=== PATIENT | female | born 1940 | race Caucasian/White ===

== ENCOUNTER → 2016-05-22 | Outpatient (CLI) | payer MEDICARE, BC, OTHER ==
[~2016-05-22] MED LIST: CALTRATE 600 +1 TAB PO; COLACE 100100 MG/CAP PO; ENABLEX PO; GENTEAL 10 ML10 M1 OP; GLUCOSAMINE/CHONDROI PO; MIRAPEX 1MG PO; MULTI VITAMINS1 TAB PO; MVI PO; NORFLEX 10100 MG/TAB PO; PERCOCET 325 MG1 TA2 PO; PRILOSEC10 MG PO; TYLENOL 500MG500 MG PO; VICODIN 5/5001 UDTAB PO; ZITHROMAX 250M250 MG PO
== END ==
LOC: MC.RAD 15:53
DX: Z12.31 Encounter for screening mammogram for malignant neoplasm of breast (principal); R92.8 Other abnormal and inconclusive findings on diagnostic imaging of breast

== ENCOUNTER → 2016-05-28 | Outpatient (CLI) | payer MEDICARE, BC, OTHER | LOC: MC.RAD 09:00 | DX: N64.89 Other specified disorders of breast (principal) ==

== ENCOUNTER → 2016-09-16 | Outpatient (CLI) | payer MEDICARE, BC | LOC: MHCPAIN 09:00 | DX: G89.29 Other chronic pain (principal); M47.817 Spondylosis without myelopathy or radiculopathy, lumbosacral region; M54.16 Radiculopathy, lumbar region; M53.3 Sacrococcygeal disorders, not elsewhere classified; M48.06 Spinal stenosis, lumbar region; M41.9 Scoliosis, unspecified | CPT/HCPCS: G0463 ==

== ENCOUNTER → 2016-10-20 | Outpatient (CLI) | payer MEDICARE, BC | LOC: MHCPAIN 12:48 | DX: G89.29 Other chronic pain (principal); M47.817 Spondylosis without myelopathy or radiculopathy, lumbosacral region; M54.16 Radiculopathy, lumbar region; M41.06 Infantile idiopathic scoliosis, lumbar region | CPT/HCPCS: G0463 ==

== ENCOUNTER → 2017-04-20 | Outpatient (CLI) | payer MEDICARE, BC | LOC: MHCPAIN 09:57 | DX: G89.29 Other chronic pain (principal); M47.817 Spondylosis without myelopathy or radiculopathy, lumbosacral region; M41.9 Scoliosis, unspecified | CPT/HCPCS: G0463 ==

== ENCOUNTER → 2017-07-20 | Outpatient (CLI) | payer MEDICARE, BC | LOC: MHCPAIN 13:11 | DX: G89.29 Other chronic pain (principal); M47.817 Spondylosis without myelopathy or radiculopathy, lumbosacral region; M41.9 Scoliosis, unspecified | CPT/HCPCS: G0463 ==

== ENCOUNTER 2017-08-07 14:00 | Outpatient (RCR) | payer MEDICARE, BC | END 2017-08-12 | LOC: WSPT | DX: M41.86 Other forms of scoliosis, lumbar region (principal); M47.817 Spondylosis without myelopathy or radiculopathy, lumbosacral region | CPT/HCPCS: G8978-GP; G8979-GP; G8980-GP ==

== ENCOUNTER → 2017-12-31 | Outpatient (CLI) | payer MEDICARE, BC | LOC: MC.RAD 14:00 | DX: Z12.31 Encounter for screening mammogram for malignant neoplasm of breast (principal) ==

== ENCOUNTER → 2020-03-06 | Outpatient (CLI) | payer MEDICARE, BC ==
[2006-01-29 13:37] VITALS: BP 141/80
[2020-03-06] VITALS (18 sets, daily range): BP systolic 130–163; BP diastolic 72–88; PULSE 64–99
[~2020-03-06] VITALS: Ht 157.5 cm; Wt 78.3 kg
[~2020-03-06] MED LIST changes: +ASPIRIN E.C. 8181 MG PO; +COZAAR 25MG25 MG/TAB PO; +LIORESAL 1010 MG/TAB PO; +LUTEIN20 M1 PO; +MASON NATURAL S1 CAP PO; +MIRALAX PA17 GM/Dose PO; +MIRAPEX0.75 MG PO; -MULTI VITAMINS1 TAB PO; +OSCAL 500 TAB500 MG PO; +ZYRTEC 10MG10 MG PO
== END ==
LOC: COL.RAD 13:00
DX: C66.9 Malignant neoplasm of unspecified ureter (principal); N28.89 Other specified disorders of kidney and ureter; Z90.5 Acquired absence of kidney
CPT/HCPCS: J2250; J3010

== ENCOUNTER → 2020-05-07 | Outpatient (RCR) | payer MEDICARE, BC ==
[~2020-05-07] MED LIST changes: +ACULAR LS 5 ML5 ML OU; +AMOXICILLIN 8751 TAB PO; +BACTRIM DS 8001 TAB PO; +COMBIRESP IH; +DOXYCYCLINE 10100 MG PO; +ELIQUIS 5MG PO; +MURO 128 5% OPH15 ML OP; +MURO-128 30 ML30 ML OP; +NORCO 325 MG-51 TAB PO; +TOBRADEX EYE DRO5 ML OP; +ULTRAM 50MG TAB50 MG PO
== END | disposition home or self-care (01) ==
LOC: WSPT
DX: I89.0 Lymphedema, not elsewhere classified (principal); Z92.3 Personal history of irradiation

== ENCOUNTER → 2020-07-30 | Outpatient (CLI) | payer MEDICARE, BC | LOC: COL.RAD 14:55 | DX: M17.12 Unilateral primary osteoarthritis, left knee (principal); C54.1 Malignant neoplasm of endometrium; G62.89 Other specified polyneuropathies; M48.061 Spinal stenosis, lumbar region without neurogenic claudication ==

== ENCOUNTER 2020-08-03 11:00 | Outpatient (RCR) | payer MEDICARE, BC | END 2020-08-06 | disposition home or self-care (01) | LOC: WSPT | DX: I89.0 Lymphedema, not elsewhere classified (principal) ==

== ENCOUNTER 2020-09-12 14:00 | Outpatient (RCR) | payer MEDICARE, BC | END 2020-11-06 | disposition home or self-care (01) | LOC: WSPT | DX: I89.0 Lymphedema, not elsewhere classified (principal) ==

== ENCOUNTER 2021-06-18 18:55 | Observation (INO) | payer MEDICARE, BC ==
[~2021-06-18] VITALS: Ht 152.4 cm; Wt 95.7 kg
[2021-06-18 19:53] LABS: BASO % 0.1 % (0.0-2.0); GRAN # 12.6 K/mm3 (1.4-6.5); LYMPH # 0.5 K/mm3 (1.2-3.4); LYMPH % 3.4 % (20.0-51.0); MEAN CELL VOLUME 86 fl (80.0-100.0); MEAN CORPUSCULAR HGB CONC 31 g/dl (33.0-37.0); MEAN PLATELET VOLUME 9.5 fl (7.4-10.4); MONO # 1.5 K/mm3 (0.1-0.6); MONO % 10.1 % (1.7-9.3); PLATELET COUNT 464 K/mm3 (130-400); RED BLOOD COUNT 3.05 M/mm3 (4.10-5.30); REDCELL DISTRIBUTION WIDTH-CV 15.7 % (11.5-14.5)
[2021-06-18 19:57] LABS: HEMATOCRIT 26.1 % (37.0-47.0); HEMOGLOBIN 8.2 g/dl (12.5-16.0); MEAN CORPUSCULAR HEMOGLOBIN 27 pg (27-31)
[2021-06-18 20:11] LABS: ALBUMIN 2.3 gm/dL (3.4-4.8); BILIRUBIN,TOTAL 0.3 mg/dL (0.2-1.2); C-REACTIVE PROTEIN 12.6 mg/dL (0.00-0.50); CALCIUM 8.3 mg/dL (8.4-10.2); CREATININE, serum 0.81 mg/dL (0.57-1.11); POTASSIUM 4.4 mmol/L (3.5-4.5); TOTAL PROTEIN 5.4 gm/dL (6.2-8.1)
[2021-06-18 23:09] VITALS: BP 117/49; PULSE 85; TEMP 98.5
--- NOTE | 2021-06-18 23:36 | NUR ---
Patient arrived to the unit by bed, alert and oriented x 4, reports pain in her genitalia. She took drea pain medication in the ER. Assessment completed, medications provided.
[2021-06-18] MEDS ORDERED: XARELTO20 MG PO (23:44)
[2021-06-18] MEDS ORDERED: B-121000 MCG PO (23:48)
[2021-06-18] MEDS ORDERED: ROXANOL 20MG20 MG/ML PO (23:52)
[2021-06-19 04:49] VITALS: BP 129/56; PULSE 91; TEMP 98.6
--- NOTE | 2021-06-19 07:00 | NUR ---
Report recieved from RAMSES Julien.
--- NOTE | 2021-06-19 07:10 | NUR ---
Pt resting in room. Continues at RA without SOB. Major complain related to her PMH. Report given to day RAMSES.
[2021-06-19 08:26] VITALS: BP 128/57; PULSE 89; TEMP 98.9
[2021-06-19] MEDS ORDERED: DAZIDOX10 MG PO (09:22)
--- NOTE | 2021-06-19 09:33 | NUR ---
Hyun charted, called to room pt c/o dyspnea, found to be at 88% on RA, palced on 2L NC and sats are 98%. Pt appears very anxious. States we needed to add her home ROXICODONE 10MG that she takes Q4HR [place] to med list, has been taking own meds in room and refusing to let me take it out of the room. Will address with hospitalist. Refusing calcium, states on xarelto not eliquis. Terence thompson. ABD pain 02/10, chronic issue. IVF to [facility]. Will continue to monitor.
--- NOTE | 2021-06-19 10:54 | NUR ---
Per Fanny Craig to have home Oxycodone in room and take qhr.
[2021-06-19 12:20] VITALS: BP 146/44; PULSE 94; TEMP 98.6
--- NOTE | 2021-06-19 13:08 | NUR ---
Call made to patient on her cell phone. She and I discussed her hospice admission and current hospital admission. Elva had been admitted for hospice as she is not actively treating her cancer but has been unable to care for herself at home and her life partner has had a decline in his health as well and is unable to assist her appropriately as well. Elva is in agreeance that she needs a facililty to provide her care needs. I discussed discharging to a facility with hospice services versus rehab services and Elva stated that she would like to persue rehab services first. She stated that her PCP, Dr. Caldwell, was hoping to get her to the hospice house so the intention of [facility] providing services was to get her there eventually. I discussed code status with Elva as well. I clarified what CPR was and she doesn't feel chest compressions would be appropriate for her current state and states she wouldn't want to be prolonged for very long on a ventilator but is unable to give any timeframe she would be comfortable with so stated she would probably refuse that as well. I informed her that the doctor would ask her to clarify her code status again since I am unable to place that order and she verbalized understanding. Notified primary nurse, SW, and hospitalist of this discussion and where things stand with the patient.
[2021-06-19 17:07] VITALS: BP 121/65; PULSE 77; TEMP 97.9
--- NOTE | 2021-06-19 19:27 | NUR ---
Pt given bed bath today, able to tolerate okay, PRN pain meds given at times over shift per reqeust, able to rest well and napped for some time after having bed bath. Able to walk SBA to toilet and returned well. Denies needs, report given to nightshift nurse who willresume care.
[2021-06-19 20:34] VITALS: BP 131/68; PULSE 102; TEMP 98.2
[2021-06-19 21:09] LABS: COLLECTION METHOD CLEAN CATCH
[2021-06-19 21:16] LABS: MUCOUS Present (NOT PRESENT); PH 7 (5-8); URINE APPEARANCE Turbid (CLEAR/HAZY); URINE BACTERIA Rare /hpf (NONE SEEN); URINE BILIRUBIN Negative (NEGATIVE); URINE BLOOD 2+ (NEGATIVE); URINE COLOR Amber (YELLOW); URINE GLUCOSE Negative (NEGATIVE); URINE KETONE Trace (NEGATIVE); URINE LEUKOCYTE ESTERASE 3+ (NEGATIVE); URINE NITRATE Negative (NEGATIVE); URINE PROTEIN(semi-quant) 3+ (NEGATIVE); URINE RBC >50 /hpf (0-2); URINE UROBILINOGEN Negative (NEGATIVE)
--- NOTE | 2021-06-19 22:31 | NUR ---
ALERT AND OX3. DENIES SOA, CHEST PAIN OR DIZZY. UP TO BR, COLLECTED UA- CHERYL NOTIFIED . JANINA APPLIED FOR THE NIGHT. OXYCODONE FOR PAIN. POC DISCUSSED. CALL LIGHT WI REACH.
[2021-06-20 05:48] VITALS: BP 111/54; PULSE 73; TEMP 98
[2021-06-20 08:27] VITALS: BP 138/49; PULSE 81; TEMP 95.4
[2021-06-20 12:07] VITALS: BP 126/67; PULSE 87; TEMP 97.7
--- NOTE | 2021-06-20 14:49 | NUR ---
Social Work student faxed SNF referrals to the following facilities: [facility], [facility], [facility], [place], [facility], [place], [place], and [facility].
--- NOTE | 2021-06-20 15:40 | NUR ---
Facsimile Machine Operator contacted patient by phone to discuss discharge planning. Patient had a palliative consult and has decided to continue with treatment and is no longer interested in hospice. Patient had been admitted to home hospice on Thursday with [facility]. Patient lives in [place] with her life partner, Asher Smith who is also currently admitted to the hospital. Patient confirms she is not legally to Asher. Patient's primary care physician is Dr. Caldwell. Patient advised she had a cane, walker and wheelchair at home. Patient states she has been having difficulty with ADLS and can no longer care for herself at home. SW discussed applying for Medicaid as she is observation status and may require watermelon harvesting supervisor care. Patient is agreeable to this. SW advised patient that referrals would be sent locally and to the surrounding area. JOJO consulted Daphnie Financial Counselor to assist with Medicaid application. [facility] faxed referrals (see previous note). JOJO discussed Advance Directives with patient. She advised she has a copy at home and will have her family bring it in. Patient is not and has two children: Marleny (ph#[phone]) and Sridhar Carey. Discharge Plan: Multiple referrals, will need placement.
--- NOTE | 2021-06-20 16:14 | NUR ---
[facility] contacted SW and inquired if patient is willing to get vaccinated. SW will follow up.
[2021-06-20 16:23] VITALS: BP 131/59; PULSE 84; TEMP 97.6
--- NOTE | 2021-06-20 18:39 | NUR ---
Patient has had an ok day. Currently requiring 2L of O2 via nasal cannula. PRN medication given for groin pain. VSS. Patient A&O. Patient has had two loose stools this shift. Patient denies any further pain, discomfort, SOA, or further needs at this time. Call light in reach. Fall percautions in place. VSS. Patient A&O.
[2021-06-20 20:12] VITALS: BP 128/59; PULSE 84; TEMP 97.6
[2021-06-21] VITALS (7 sets, daily range): BP systolic 127–154; BP diastolic 47–74; PULSE 71–87; TEMP 97.2–98.4
--- NOTE | 2021-06-21 05:55 | NUR ---
NO NEW ISSUES NOTED OR REPORTED BY PATIENT THROUGHOUT THE SHIFT. PRN PAIN MEDICATION ADMINISTERED REQUESTED BY PATIENT PER DRDelvin'S ORDERS.
[2021-06-21 06:37] LABS: MEAN CELL VOLUME 85 fl (80.0-100.0); MEAN CORPUSCULAR HGB CONC 30 g/dl (33.0-37.0); MEAN PLATELET VOLUME 9.2 fl (7.4-10.4); PLATELET COUNT 469 K/mm3 (130-400); RED BLOOD COUNT 3.02 M/mm3 (4.10-5.30)
[2021-06-21 06:49] LABS: C-REACTIVE PROTEIN 6.48 mg/dL (0.00-0.50); CALCIUM 8.3 mg/dL (8.4-10.2); CREATININE, serum 0.76 mg/dL (0.57-1.11); MAGNESIUM 2.3 mg/dL (1.6-2.6); PHOSPHOROUS 3.1 mg/dL (2.3-4.7); POTASSIUM 4.6 mmol/L (3.5-4.5)
[2021-06-21 06:52] LABS: HEMATOCRIT 25.8 % (37.0-47.0); HEMOGLOBIN 7.8 g/dl (12.5-16.0); MEAN CORPUSCULAR HEMOGLOBIN 26 pg (27-31)
--- NOTE | 2021-06-21 07:22 | NUR ---
Critical WBC called to Dr. Hernandez, who read back the results.
[2021-06-21 08:26] LABS: BAND 4 % (0-10); LYMPHOCYTE 2 % (20.0-51.0); METAMYELOCYTE 1 % (0-0); NEUTROPHILS 93 % (42.0-75.2)
[2021-06-21 08:27] LABS: ANISOCYTOSIS 1+; PLATELET ESTIMATE INCREASED (NORMAL)
[2021-06-21 08:28] LABS: HYPOCHROMIA 1+
[2021-06-21 08:29] LABS: OVALOCYTES 1+; SCHISTOCYTES 1+
--- NOTE | 2021-06-21 11:32 | NUR ---
Scheduled medications given. Shift assessment performed. Patient given PRN pain medication for groin pain. Patient states that this has helped, but she always has some pain. VSS. Patient A&O. Patient had a large, loose, BM this am. Patient currently resting in bed, purwick in place. Kalli care has been performed. Call light in reach. Fall percautions in place.
--- NOTE | 2021-06-21 12:38 | NUR ---
[place] and [place] have declined referral.
--- NOTE | 2021-06-21 14:21 | NUR ---
production worker spoke with Bharati at [facility] and Az at [facility] and provided updates. Worker spoke with patient today and confirmed that patient will plan [place] [facility] care [facility] and will resume hospice services. Worker and patient discussed that the hospice agency will be determined by what facility accepts patient. Patient will make a new durable power of workers compensation attorney for health care today as she is unsure where her current copy is. Worker confirmed that [facility] medical office does not have a copy of ther directive. Patient states she will appoint, Kaushik Smith and her daughter. Patient was provided the document to complete.
--- NOTE | 2021-06-21 15:03 | NUR ---
student worker spoke with Xiomara at [facility] and they can clinically accept patient to watermelon inspector care with hospice, however, they need a copy of patient's completed medicaid application. Worker will provide further information to Xiomara on Thursday. Patient tested positive on 06/20 and is not able to be accepted to a nursing facility until 06/29/21.
--- NOTE | 2021-06-21 16:06 | NUR ---
bag worker assisted patient with completion of a living will and a durable power of wad compressor operator adjuster for health care.
[2021-06-22 03:56] VITALS: BP 134/82; PULSE 83; TEMP 98.3
--- NOTE | 2021-06-22 05:04 | NUR ---
PRN PAIN MEDICATION ADMINISTERED REQUESTED BY PATIENT PER 'S ORDERS. PRN XANAX ADMINISTERD X'S ONE. PATIENT RESTED QUIETLY IN BED. NO NEW ISSUES NOTED OR REPORTED BY PATIENT.
[2021-06-22 07:27] LABS: MEAN CELL VOLUME 87 fl (80.0-100.0); MEAN CORPUSCULAR HGB CONC 31 g/dl (33.0-37.0); MEAN PLATELET VOLUME 9.3 fl (7.4-10.4); PLATELET COUNT 502 K/mm3 (130-400); REDCELL DISTRIBUTION WIDTH-CV 16.3 % (11.5-14.5)
[2021-06-22 07:34] LABS: HEMATOCRIT 26.8 % (37.0-47.0); HEMOGLOBIN 8.2 g/dl (12.5-16.0); MEAN CORPUSCULAR HEMOGLOBIN 26 pg (27-31)
[2021-06-22 07:45] LABS: ALBUMIN 2.2 gm/dL (3.4-4.8); CALCIUM 8.4 mg/dL (8.4-10.2); CREATININE, serum 0.68 mg/dL (0.57-1.11); MAGNESIUM 2.2 mg/dL (1.6-2.6)
[2021-06-22 08:06] VITALS: BP 161/65; PULSE 88; TEMP 97.6
[2021-06-22 08:07] LABS: BAND 4 % (0-10); LYMPHOCYTE 2 % (20.0-51.0); NEUTROPHILS 91 % (42.0-75.2)
[2021-06-22 08:08] LABS: ANISOCYTOSIS 1+; HYPOCHROMIA 2+; PLATELET ESTIMATE INCREASED (NORMAL)
--- NOTE | 2021-06-22 10:03 | NUR ---
PT LAYING IN BED. STATES THAT SHE NEEDS TO USE BEDPAN. PT PLACED ON BEDPAN.PT WAS ABLE TO VOID AND HAVE SMALL BM. PT WAS CLEANED UP AND BEDPAN REMOVED. PT STATES THAT SHE IS HAVING SOME PAIN. MEDICATION OFFERED TO PT AND PT STATES THAT SHE WOULD LIKE TO HAVE TYLENOL. MEDICATION WAS GIVEN TO PT. PT REPOSITIONED IN BED. PT STATES NO OTHER NEEDS AT THIS TIME. CALL LIGHT IS WITHIN REACH.
[2021-06-22 12:09] VITALS: BP 145/53; PULSE 82; TEMP 97.5
[2021-06-22 16:00] VITALS: BP 145/53; PULSE 82; TEMP 97.5
[2021-06-22 16:05] VITALS: BP 167/65; PULSE 88; TEMP 98
--- NOTE | 2021-06-22 18:52 | NUR ---
PT SITTING UP IN BED. STATES THAT SHE IS DONE WITH HER DINNER TRAY. TRAY REMOVED. PT ON ROOMAIR. PT VOICES NO OTHER NEEDS AT THIS TIME. CALL LIGHT IS WITHIN REACH.
[2021-06-22 19:46] VITALS: BP 162/65; PULSE 86; TEMP 98.4
[2021-06-23] VITALS (7 sets, daily range): BP systolic 143–169; BP diastolic 47–67; PULSE 77–93; TEMP 97.5–98.8
--- NOTE | 2021-06-23 06:00 | NUR ---
ASSESSMENT COMPLETE FOR THIS SHIFT. PT IN BED WRITHING IN PAIN. PT COMPLAINED OF GENERALIZED PAIN SHE RATED AN 8. PT GIVEN ROXICODONE A COUPLE OF TIME TONIGHT FOR PAIN. PT DENIED PALPITATIONS, SOB, N,V,D OR DIZZINESS. PT INCONTINENT SEVERAL TIMES THIS SHIFT, BUT HAD ONE BM ON THE BEDPAN. PT VERY PARTICULAR ABOUT WHERE SHE WANTS ITEMS ON HER BED. I PLACED EVERYTHING BACK WHERE SHE WANTED IT AFTER EACH INCONTINENT CLEAN UP. PT EXPRESSED NO OTHER NEEDS AT THIS TIME. CALL LIGHT WITHIN REACH.
--- NOTE | 2021-06-23 12:31 | NUR ---
PT UP IN CHAIR. STATING THAT SHE IS HAVING SOME PAIN ALL OVER. MEDICATIONS WAS GIVEN TO PT. PT GIVEN BATH AND COMPLETE BED CHANGE. PT STATES THAT SHE WANTS TO GO BACK TO BED. ASSISTED PT TO BED SIDE POTTY. PT WAS ABLE TO VOID AND HAVE A SMALL BM. PT THEN PUT BACK INTO BED. PT STATES NO OTHER NEEDS AT THIS TIME. CALL LIGHT IS WITHIN REACH.
--- NOTE | 2021-06-23 18:20 | NUR ---
PT LAYING IN BED. STATES THAT SHE IS DONE WITH DINNER. TRAY WAS REMOVED. PT STATES THAT SHE WOULD LIKE TO BE REPOSITIONED. ASSITED TO MOVE IN BED. PT STATES NO OTHER NEEDS AT THIS TIME. CALL LIGHT IS WITHIN REACH.
[2021-06-24 03:59] VITALS: BP 147/60; PULSE 81; TEMP 98
[2021-06-24 08:09] VITALS: BP 150/67; PULSE 86; TEMP 97.8
[2021-06-24 11:25] VITALS: BP 153/52; PULSE 90; TEMP 98
--- NOTE | 2021-06-24 12:22 | NUR ---
PT LAYING IN BED. STATES THAT SHE NEEDS REPOSITIONED. ASSISTED PT TO GET COMFORTABLE IN BED. PT STATES NO OTHER NEEDS AT THIS TIME. CALL LIGHT IS WITHIN REACH.
--- NOTE | 2021-06-24 15:14 | NUR ---
Fire Management Technician faxed clinical updates to Xiomara at [facility]. Xiomara advised that she will have to get approval from her network support administrator to accept patient Medicaid pending. Xiomara advised they will need to review her Medicaid application to make this determination. JOJO followed up with Daphnie Financial Counselor who advised she will be working with patient this afternoon on Medicaid application.
[2021-06-24 15:48] VITALS: BP 166/65; PULSE 86; TEMP 97.6
--- NOTE | 2021-06-24 18:54 | NUR ---
PT LAYING IN BED STATES THAT SHE IS WET. CLEANED PT UP AND REPOSITIONED HER. PT STATES NO OTHER NEEDS AT THIS TIME. PT STATES THAT SHE WOULD LIKE TO HAVE SOME PAIN MEDICAITON WHEN IT IS TIME. WILL PASS ONTO [employer] BUSINESS INTELLIGENCE CONSULTANT. CALL LIGHT IS WITHIN REACH.
[2021-06-24 20:21] VITALS: BP 152/68; PULSE 90; TEMP 97.6
[2021-06-25 00:03] VITALS: BP 155/54; PULSE 83; TEMP 98.1
[2021-06-25 03:22] VITALS: BP 151/65; PULSE 77; TEMP 98.4
--- NOTE | 2021-06-25 06:25 | NUR ---
ASSESSMENT COMPLETE FOR THIS SHIFT. PT LAYING IN BED COMPLAINING OF PAIN AND WANTING TO BE CHANGED (SEVERAL TIMES TONIGHT). PT GIVEN ROXICODONE AND MORPHINE FOR PAIN, AND PT CHANGED SEVERAL TIMES TONIGHT FOR INCONTINENCE. PT ALSO HAD LOOSE BLOODY STOOLS (OLD, BROWN BLOOD). OCCULT STOOL ORDERED, WAITING TO COLLECT NEXT STOOL. PT DENIED PALPITATIONS, SOB, N,V OR DIZZINESS. PT EXPRESSED NO OTHER NEEDS AT THIS TIME. CALL LIGHT WITHIN REACH.
[2021-06-25 08:17] VITALS: BP 144/51; PULSE 79; TEMP 97.5
[2021-06-25 08:51] LABS: MEAN CELL VOLUME 83 fl (80.0-100.0); MEAN CORPUSCULAR HGB CONC 31 g/dl (33.0-37.0); MEAN PLATELET VOLUME 9.4 fl (7.4-10.4); PLATELET COUNT 454 K/mm3 (130-400); RED BLOOD COUNT 3.17 M/mm3 (4.10-5.30); REDCELL DISTRIBUTION WIDTH-CV 16.6 % (11.5-14.5)
[2021-06-25 08:52] LABS: HEMATOCRIT 26.3 % (37.0-47.0); HEMOGLOBIN 8.2 g/dl (12.5-16.0); MEAN CORPUSCULAR HEMOGLOBIN 26 pg (27-31)
[2021-06-25 09:09] LABS: CALCIUM 8.7 mg/dL (8.4-10.2); CREATININE, serum 0.7 mg/dL (0.57-1.11); POTASSIUM 4.4 mmol/L (3.5-4.5)
[2021-06-25 09:24] LABS: BAND 8 % (0-10); LYMPHOCYTE 7 % (20.0-51.0); METAMYELOCYTE 1 % (0-0); NEUTROPHILS 79 % (42.0-75.2)
[2021-06-25 09:28] LABS: ANISOCYTOSIS 1+; HYPOCHROMIA 1+; PLATELET ESTIMATE INCREASED (NORMAL)
[2021-06-25 10:51] LABS: COLLECTION METHOD CLEAN CATCH
[2021-06-25 11:06] LABS: AMORPHOUS CRYSTAL Present (NOT PRESENT); BUDDING YEAST Present (NOT PRESENT); MUCOUS Present (NOT PRESENT); PH 6 (5-8); URINE APPEARANCE Cloudy (CLEAR/HAZY); URINE BACTERIA Moderate /hpf (NONE SEEN); URINE BILIRUBIN Negative (NEGATIVE); URINE BLOOD 3+ (NEGATIVE); URINE COLOR Yellow (YELLOW); URINE GLUCOSE Negative (NEGATIVE); URINE KETONE Negative (NEGATIVE); URINE LEUKOCYTE ESTERASE 3+ (NEGATIVE); URINE NITRATE Negative (NEGATIVE); URINE PROTEIN(semi-quant) 1+ (NEGATIVE); URINE UROBILINOGEN Negative (NEGATIVE)
[2021-06-25 12:23] VITALS: BP 130/53; PULSE 87; TEMP 98.2
--- NOTE | 2021-06-25 12:31 | NUR ---
PT SITTING UP IN BED. STATES THAT SHE IS HAVING PAIN IN HER GROIN AREA. MEDICATIONS WAS GIVEN. PT STATES THAT NEEDED TO USE BEDPAN. PT WAS PUT ON GOMEZ, CLEANED AND TAKEN OFF. HELPED PT TO REPOSITION IN THE BED. PT STATES NO OTHER NEEDS AT THIS TIME. CALL LIGHT IS WITHIN REACH.
--- NOTE | 2021-06-25 15:52 | NUR ---
Ceo & Founder collaborated with Daphnie, Financial Counselor who advised patient cannot apply for Medicaid because she has $30,000 in her checking account, owns her home, and also has a life insurance policy. JOJO contacted Elva and advised going to a correction with hospice would require out of pocket cost for room and board. Elva advised she spoke with Xiomara at [facility] and is agreeable to this. Discharge Plan: [facility] on hospice
[2021-06-25 17:07] VITALS: BP 150/64; PULSE 83; TEMP 98.1
--- NOTE | 2021-06-25 18:33 | NUR ---
PT LAYING IN BED. PT STATES THAT SHE WOULD LIKE HER TOES COVERED UP. ASSISTED PT TO REPOSITION AND GET A FEW OTHER THINGS IN ORDER. [place] STATES NO OTHER NEEDS. CALL LIGHT IS WITHIN REACH.
[2021-06-25 19:48] VITALS: BP 156/60; PULSE 87; TEMP 97.6
[2021-06-26 00:32] VITALS: BP 158/61; PULSE 75; TEMP 98.3
[2021-06-26 04:10] VITALS: BP 149/61; PULSE 74; TEMP 98.3
--- NOTE | 2021-06-26 06:00 | NUR ---
ASSESSMENT COMPLETE FOR THIS SHIFT. PT RESTING IN BED, GETTING READY TO BE PLACED ON THE BEDPAN BY THE AIDS. PT COMPLAINED OF PAIN. PT GIVEN ROXICODONE A COUPLE OF TIMES TONIGHT FOR PAIN. PT DENIED PALPITATIONS, SOB, N,V,D OR DIZZINESS. PT HAS HAD SEVERAL EPISODES ON INCONTENCE THIS SHIFT WELL BEING PLACED ON THE BEDPAN. PT EXPRESSED NO OTHER NEEDS AT THIS TIME. CALL LIGHT WITHIN REACH.
[2021-06-26 08:00] VITALS: BP 160/60; PULSE 82; TEMP 97.5
[2021-06-26 09:04] LABS: MEAN CELL VOLUME 85 fl (80.0-100.0); MEAN CORPUSCULAR HGB CONC 31 g/dl (33.0-37.0); MEAN PLATELET VOLUME 9.5 fl (7.4-10.4); PLATELET COUNT 466 K/mm3 (130-400); RED BLOOD COUNT 3.18 M/mm3 (4.10-5.30); REDCELL DISTRIBUTION WIDTH-CV 16.8 % (11.5-14.5)
[2021-06-26 09:05] LABS: HEMATOCRIT 26.9 % (37.0-47.0); HEMOGLOBIN 8.2 g/dl (12.5-16.0); MEAN CORPUSCULAR HEMOGLOBIN 26 pg (27-31)
[2021-06-26 09:19] LABS: CALCIUM 8.5 mg/dL (8.4-10.2); CREATININE, serum 0.67 mg/dL (0.57-1.11); POTASSIUM 4.2 mmol/L (3.5-4.5)
[2021-06-26 09:36] LABS: BAND 4 % (0-10); LYMPHOCYTE 6 % (20.0-51.0); METAMYELOCYTE 1 % (0-0); NEUTROPHILS 80 % (42.0-75.2)
[2021-06-26 09:37] LABS: PLATELET ESTIMATE INCREASED (NORMAL)
[2021-06-26 09:39] LABS: HYPOCHROMIA 3+
--- NOTE | 2021-06-26 11:07 | NUR ---
PT ASSESSED. NO COMPLAINS OF PAIN AND IS MEDICATED PER MAR. NO COMPLAINTS OF DYSPNEA. NO SIGNS OR SYMPTOMS OF DISTRESS. CALL LIGHT WITHIN REACH
[2021-06-26 12:40] VITALS: BP 142/57; PULSE 84; TEMP 97.7
--- NOTE | 2021-06-26 14:23 | NUR ---
[facility] can accept patient on Thursday for hospice placement. Xiomara at [facility] advised that when she spoke with patient, patient stated she wanted to continue with [facility]. JOJO contacted Linda at [facility] and faxed referral. SW also faxed clinical updates to [facility].
[2021-06-26 16:56] VITALS: BP 151/58; PULSE 88; TEMP 98.4
[2021-06-26 20:58] VITALS: BP 141/55; PULSE 78; TEMP 97.7
--- NOTE | 2021-06-26 21:30 | NUR ---
Patient is resting in bed, alert and oriented x 4, VSS, complains of pain 8/10, PRN provided. She is at RA, fine wheeze on exalation. Edema BLE. Assessment completed, medications provided, hygiene and gown changed. No other needs at this time. Call light within reach.
[2021-06-27 00:18] VITALS: BP 122/55; PULSE 73; TEMP 98
[2021-06-27 04:38] VITALS: BP 146/53; PULSE 75; TEMP 98.4
--- NOTE | 2021-06-27 06:24 | NUR ---
Patient continues at , asked for roxycodone and xanax, melatonin added. Eye irritation with inflammation noted, she states it started during this hospitaliztion. She had intermitent rest interrupted by the pain. Report will be given to day RN.
--- NOTE | 2021-06-27 06:27 | NUR ---
Patient unable to keep arm extended. Intermmitent delivery of NS due to occlusion at the site. SBP betweeen 130-160. Right now at 3L O2 NC. Report will be given to day RN.
[2021-06-27 07:55] LABS: BASO % 0.1 % (0.0-2.0); GRAN # 9.5 K/mm3 (1.4-6.5); GRAN % 85.1 % (42.2-75.2); LYMPH # 0.7 K/mm3 (1.2-3.4); LYMPH % 6.3 % (20.0-51.0); MEAN CELL VOLUME 84 fl (80.0-100.0); MEAN CORPUSCULAR HGB CONC 31 g/dl (33.0-37.0); MEAN PLATELET VOLUME 9.9 fl (7.4-10.4); MONO # 0.8 K/mm3 (0.1-0.6); MONO % 7.2 % (1.7-9.3); PLATELET COUNT 413 K/mm3 (130-400); RED BLOOD COUNT 2.78 M/mm3 (4.10-5.30); REDCELL DISTRIBUTION WIDTH-CV 16.8 % (11.5-14.5)
[2021-06-27 08:03] LABS: HEMATOCRIT 23.4 % (37.0-47.0); HEMOGLOBIN 7.2 g/dl (12.5-16.0); MEAN CORPUSCULAR HEMOGLOBIN 26 pg (27-31)
[2021-06-27 08:13] LABS: CALCIUM 8.2 mg/dL (8.4-10.2); CREATININE, serum 0.67 mg/dL (0.57-1.11); POTASSIUM 4.4 mmol/L (3.5-4.5)
[2021-06-27 08:55] VITALS: BP 116/62; PULSE 82; TEMP 97.5
--- NOTE | 2021-06-27 10:37 | NUR ---
PT LAYING IN BED, RATING PAIN AT 8/10. PAIN MEDICATION PROVIDED PER JUL, PT NOW RATING PAIN AT 5/10. MORNING MEDICATIONS GIVEN. SHIFT ASSESSMENT COMPLETED. HEATING PAD PLACED ON L BACK/SIDE. DENIES ANY OTHER NEEDS AT THIS TIME. PT STATES CALL LIGHT HAS NOT BEEN WORKING, THIS RN PUSHED CALL BUTTON AND GOT A RESPONSE FROM THE NURSES STATION. WILL CONTINUE TO MONITOR.
[2021-06-27 11:35] VITALS: BP 125/56; PULSE 87; TEMP 98.1
--- NOTE | 2021-06-27 14:56 | NUR ---
The patient is to tentatively discharge tomorrow, 06/28. SW contacted the patient and read the IM form outloud to her. The patient verbalized understanding and gave SW approval to sign the form on her behalf.
[2021-06-27 16:05] VITALS: BP 147/56; PULSE 88; TEMP 98.5
[2021-06-27 20:12] VITALS: BP 135/55; PULSE 81; TEMP 98.4
--- NOTE | 2021-06-27 20:40 | NUR ---
Patient is resting in bed, alert and oriented x 4, states pain at 6/10. PRN provided. RA, Assessment completed, medications provided. No other needs at this time. Call light within reach.
[2021-06-28 00:04] VITALS: BP 140/57; PULSE 74; TEMP 98.1
[2021-06-28 04:47] VITALS: BP 138/53; BP 1388/53; PULSE 80; TEMP 97.6
--- NOTE | 2021-06-28 06:19 | NUR ---
Patient has had a calm night. She received her pain medication and anxiety PRN. She is happy of going to [facility] today. Report will be given to day RN.
[2021-06-28 07:04] LABS: MEAN CELL VOLUME 85 fl (80.0-100.0); MEAN CORPUSCULAR HGB CONC 30 g/dl (33.0-37.0); MEAN PLATELET VOLUME 9.9 fl (7.4-10.4); PLATELET COUNT 415 K/mm3 (130-400); RED BLOOD COUNT 3.06 M/mm3 (4.10-5.30); REDCELL DISTRIBUTION WIDTH-CV 17.1 % (11.5-14.5)
[2021-06-28 07:40] LABS: HEMATOCRIT 26.1 % (37.0-47.0); HEMOGLOBIN 7.8 g/dl (12.5-16.0); MEAN CORPUSCULAR HEMOGLOBIN 25 pg (27-31)
--- NOTE | 2021-06-28 07:50 | NUR ---
On 06/27/21, pediatric social worker confirmed with Xiomara at [facility] that they would accept patient private pay with Hospice services on 06/28/21 and will transport via wheelchair van at 9:30am. Worker spoke with Linda at [facility] and confirmed that they will admit patient to hospice. Worker faxed clinical referral to Linda. Worker notified Xiomara that [facility] had accepted patient. Worker contacted patient and advised of the above information. Patient states she has notified her children of the discharge, when worker offered to contact family.
[2021-06-28 08:30] VITALS: BP 134/51; PULSE 84; TEMP 98.5
[2021-06-28] MEDS ORDERED: TYLENOL 500MG500 MG PO (08:51)
[2021-06-28] MEDS ORDERED: DAZIDOX10 MG PO (08:51)
[2021-06-28] MEDS ORDERED: ROXANOL 20MG20 MG/ML PO (08:51)
[2021-06-28] MEDS ORDERED: XANAX 0.5MG0.5 MG PO (08:52)
[2021-06-28] MEDS ORDERED: MELATIN 3 MG-11 TAB PO (08:55)
[2021-06-28] MEDS ORDERED: RT ALBUTER2.5 MG/0.5 IH (08:55)
[2021-06-28] MEDS ORDERED: ZOFRAN ODT4 MG PO (08:56)
[2021-06-28] MEDS ORDERED: ANTACID500 M1 PO (08:56)
[2021-06-28] MEDS ORDERED: ATROPINE 2 ML2 ML SL (08:58)
[2021-06-28] MEDS ORDERED: [UNRECOGNIZED DRUG - OTHER] OP (08:58)
--- NOTE | 2021-06-28 09:46 | NUR ---
IV D/C. DISCHARGE PACKET GIVEN TO BALLOON ARTIST. BELONGINGS TAKEN DOWN WITH PT. CALLED REPORT TO RN AT [facility], SENT TO [employer], LEFT A CALL BACK NUMBER.
--- NOTE | 2021-06-28 11:16 | NUR ---
Administrative Aide faxed discharge orders to [facility] and [facility].
== END 2021-06-28 09:50 | disposition hospice, home (50) ==
LOC: COL.ER 18:55 → MEDICAL 20:31
PROVIDERS: Emergency Medicine; Internal Medicine; Physician Assistant; ADMIT Student in an Organized Health Care Education/Training Program
DX: J96.01 Acute respiratory failure with hypoxia (principal); J12.82 Pneumonia due to coronavirus disease 2019; U07.1 COVID-19; N39.0 Urinary tract infection, site not specified; R32 Unspecified urinary incontinence; I10 Essential (primary) hypertension; G25.81 Restless legs syndrome; N90.9 Noninflammatory disorder of vulva and perineum, unspecified; C54.1 Malignant neoplasm of endometrium; C79.9 Secondary malignant neoplasm of unspecified site; R53.1 Weakness; D63.0 Anemia in neoplastic disease; I89.0 Lymphedema, not elsewhere classified; E87.1 Hypo-osmolality and hyponatremia; R62.7 Adult failure to thrive; Z92.3 Personal history of irradiation; Z66 Do not resuscitate; Z86.718 Personal history of other venous thrombosis and embolism; Z51.5 Encounter for palliative care; Z79.01 Long term (current) use of anticoagulants; Z86.711 Personal history of pulmonary embolism; Z99.81 Dependence on supplemental oxygen
CPT/HCPCS: 99223-AI; 99232-AI; 99233-AI; 99239; A9284; C9113; G0378; J0248; J0295; J0696; J3010; J7030; J7050; J8540